=== PATIENT | female | born 1935 | race Caucasian/White ===

== ENCOUNTER 2020-07-25 17:43 | Inpatient (IN) | payer MEDICARE, BC ==
--- NOTE | ~2020-07-25 | EC ---
PATIENT:TOMASA WIGGINS DATE OF SERVICE: 07/25/20 SEX: F MEDICAL RECORD: [id number] DATE OF : 39 LOCATION:[facility] AGE OF PATIENT: 85 ADMISSION DATE: 07/25/20 REFERRING PHYSICIAN: INTERPRETING PHYSICIAN: ROXY NGO MD ECHOCARDIOGRAM REPORT ECHO CHARGES Date: CLINICAL DIAGNOSIS: ECHOCARDIOGRAPHIC MEASUREMENTS (adult normal given) AC root (d.<3.7cm) cm LV Septum d (<1.2 cm> cm Valve Excursion cm LV Septum (systole) cm Left Atria (s.<4.0cm> cm LVPW d(<1.2cm) cm RV (d.<2.3cm) cm LVPW (sytole) cm LV diastole(<5.6CM) cm MV E-F(>70mm/sec) cm LV systole cm LVOT Diameter cm MV exc.(>10mm) cm Est.ejection fraction (50-75%) % DOPPLER: LVIT cm/sec A cm/sec E cm/sec LA cm/sec RVSP mmHg LVOT cm/sec AOP1/2T m/s Asc. Ao cm/sec RVOT cm/sec RA cm/sec PA cm/sec AV Gradient Peak mmHg AV Mean mmHg AV Area cm MV Gradient Peak mmHg MV Mean mmHg MV Area cm COMMENTS: Electronic Tester: Structural Design Engineer: SONIA# Pericardial Effusion DATE OF SERVICE: PROCEDURE: Transthoracic echocardiogram. FINDINGS: Left ventricle shows mild left ventricular concentric hypertrophy with diastolic dysfunction. The patient has normal left ventricular systolic function with an ejection fraction of 55% and without any regional wall motion abnormalities. ECHOCARDIOGRAM REPORT [id number] TOMASA WIGGINS RIGHT VENTRICLE: Normal size, shape, structure, and function. LEFT ATRIUM: Mild to moderately dilated. RIGHT ATRIUM: Mildly dilated with normal structure and function. AORTIC VALVE: Normal structure and function. MITRAL VALVE: Normal structure and function with trace mitral regurgitation. TRICUSPID VALVE: Normal structure and function with mild tricuspid regurgitation. The right ventricular systolic pressures are upper limits of normal. PULMONIC VALVE: Normal. There is no pleural effusion. There is no pericardial effusion. There is no obvious ASD or VSD or vegetation or thrombus. IMPRESSION: This is a normal transthoracic echocardiogram with the slight exception of mild concentric left ventricular hypertrophy and diastolic dysfunction. TRANSINT:[id number] Voice Confirmation ID: [id number] DOCUMENT ID: [id number] ROXY NGO MD CC: [id number] DICTATION DATE: 07/26/20 1325 ACCOUNTS PAYABLE CLERK: 07/26/202222 ADM IN [place] [id number] [place] [address]
[2020-07-25] MEDS ORDERED: VITAMIN D-40010 MCG PO (19:31)
[2020-07-25] MEDS ORDERED: ZYRTEC10 MG PO (19:31)
[2020-07-25] MEDS ORDERED: CHRONULAC30 ML PO (19:32)
[2020-07-25] MEDS ORDERED: LEVOXYL100 MCG PO (19:33)
[2020-07-25] MEDS ORDERED: MUCINEX600 MG PO (19:33)
[2020-07-25] MEDS ORDERED: LISINOPRIL40 MG PO (19:34)
[2020-07-25] MEDS ORDERED: IMODIUM2 MG PO (19:35)
[2020-07-25] MEDS ORDERED: MOBIC7.5 MG PO (19:35)
[2020-07-25] MEDS ORDERED: MILK OF MAGNESI30 ML PO (19:35)
[2020-07-25] MEDS ORDERED: MULTI-DAY VITAM1 TAB PO (19:36)
[2020-07-25] MEDS ORDERED: MIRALAX17 GM PO (19:36)
[2020-07-25] MEDS ORDERED: REMERON15 MG PO (19:36)
[2020-07-25] MEDS ORDERED: SENNA LAXATIVE8.6 MG PO ×2 (19:37→19:38)
[2020-07-25] MEDS ORDERED: ZOLOFT100 MG PO (19:37)
[2020-07-25 20:00] VITALS: BP 145/77
--- NOTE | 2020-07-25 20:47 | NUR ---
PT ADMIT TO THE UNIT FROM [facility] FOR SI. PT RELATED TO A NURSE AT MD THAT SHE PLANNED ON SUFFOCATING HERSELF WITH A PLASTIC BAG. PT ARRIVED WITH MD STAFF. AMBULATORY WITH A ROLLER WALKER FOR ASSIST. ITEMS WITH PT INVENTORIED AND PLACED IN CHART. CONSENT OBTAINED FROM DAUGHTER MERLE MONSON AND CONFIRMED PT CODE STATUS DNR. BOTH DNR AND POA PAPERWORK LOCATED AND PLACED IN CHART. PASSCODE GIVEN. PT IS CALM AND COOPERATIVE. VERY CONFUSED TO WHY SHE IS HERE. DENIES THOUGHTS OF SELF HARM TO THIS NURSE. COVID SWAB OBTAINED AND SENT TO LAB PER PROTOCOL. PT PLACED IN DROPLET ISOLATION PENDING RESULTS. EDUCATED PT ON ISOLATION PROTOCOL AND SHE VERBALIZED UNDERSTANDING. MONITOR FOR SAFETY.
[2020-07-25 21:56] VITALS: BP 145/77; BMI 26.5
[2020-07-26 01:17] LABS: BILIRUBIN NEGATIVE (NEGATIVE); KETONE NEGATIVE (NEGATIVE); NITRITE NEGATIVE (NEGATIVE); UROBILINOGEN NORMAL mg/dL (< 2)
[2020-07-26 05:59] LABS: BASOPHILS 0.2 % (0-2); EOSINOPHILS 5.2 % (0-7); HEMATOCRIT 35.9 % (36.0-48.0); HEMOGLOBIN 11.5 g/dL (12-16); IMMATURE GRANULOCYTES 0.3 % (0-5); LYMPHOCYTE ABS# 2.17 10x3/uL (1.18-3.74); LYMPHOCYTES 36.2 % (15-50); MCH 30.7 pg (26.0-34.0); MEAN PLATELET VOLUME 8.3 fL (7.4-10.4); MONOCYTES 9.3 % (2-11); NEUTROPHIL ABS# 2.93 10x3/uL (1.56-6.13); NEUTROPHILS 48.8 % (40-80); PLATELET COUNT 167 10x3/uL (130-400); RBC 3.74 10x6/uL (4.00-5.40)
[2020-07-26 06:44] LABS: ANION GAP 7.9 mmol/L (8-16); BILIRUBIN - TOTAL 0.34 mg/dL (0.2-1.3); CALCIUM 8.4 mg/dL (8.5-10.1); CARBON DIOXIDE 29.8 mmol/L (21.0-32.0); CHOL - HDL RATIO 3.9 ratio (2.3-4.1); LDL-HDL RATIO 2.5 ratio (1.5-3.5); POTASSIUM - SERUM 3.7 mmol/L (3.5-5.1); PROTEIN - SERUM 6.1 g/dL (6.4-8.2); THYROID STIMULATING HORMONE 8.75 uIU/mL (0.36-3.74)
[2020-07-26 21:44] VITALS: BP 177/80
--- NOTE | 2020-07-26 23:00 | NUR ---
PT IS ALERT AND ORIENTED TO SELF,PLACE AND SITUATION. SHE DENIES ANY SI. VERY CONFUSED AND RESTLESS AT TIMES. COMPLIANT WITH ALL MEDICATIONS. EASY TO REDIRECT BUT REQUIRES CONSTANT REDIRECTION THIS EVENING. UNSTEADY GAIT. MONITOR FOR SAFETY.
[2020-07-27 08:00] VITALS: BP 154/75
[2020-07-27 10:58] VITALS: Wt 66.1 kg
--- NOTE | 2020-07-27 13:58 | PSY ---
PATIENT NAME:TOMASA WIGGINS MEDICAL RECORD: [id number] : 39 LOCATION:[facility] ADMISSION DATE: 07/25/20 ACCOUNT: [id number] PSYCHIATRIC EVALUATION DATE OF EVALUATION: 07/26/20 IDENTIFYING DATA: The patient is an 85-year-old female who appears her stated age and she is admitted to the hospital on a voluntary basis. CHIEF COMPLAINT: Suicidal ideation. HISTORY OF PRESENT ILLNESS: The patient reports that for the last 3 months, she has become more and more depressed. The patient reports that she had thought of her first plan was to be able to jump out the window, but then realized that the window was too hard to break. The patient reports that then she decided that if her daughter would not take her out that then she would move and she would use a plastic bag. The patient reports that she lives at the long-term care facility with her son who is handicapped. 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 She states that her depression has worsened since she has not been able to move back home with her son and that she has to live at the half-way. She also states that it has been hard because her daughter is only be able to visit her from the window. PAST MEDICAL HISTORY: Hypothyroidism. She has a history of hypertension, syncope, bradycardia, orthostatic hypotension, chronic diastolic heart failure, constipation, arthritis, osteoporosis, kyphosis, menopause. PAST PSYCHIATRIC HISTORY: She has an established diagnosis of dementia, depression, and sundowns. FAMILY HISTORY: Unknown. ALLERGIES: INCLUDES BISPHOSPHONATES, LIDOCAINE, ALTERNATE SODIUM, AND IBANDRONATE SODIUM. CURRENT MEDICATIONS: Zyrtec, lisinopril, Mobic, milk of mag, MiraLax, Remeron, Theragran, senna laxative, Zoloft. 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 She was . They had 3 children, 1 child is handicapped includes physical and she has been a care provider for him. They reside in an apartment. She states her daughter then made her move into a half-way because she needed help caring for herself and her son. The patient reports she does not agree with that. She would rather move into her daughter's house, she feels it is big enough. Her daughter is a speech pathologist and that she should be able to live on a floor and does not want to be in the half-way. MENTAL STATUS EXAM: The patient is awake and alert and oriented to person and place. Disoriented to time, somewhat oriented to situation. Her speech is soft, low tone, low volume. Her eye contact is good. Her posture is within normal limits. Her appearance is that she has her shirt wrong side out and on backwards. Her mood is depressed and anxious. Her affect is flat, narrow in range. The patient does have suicidal ideation. She denies any plan today. The patient does not have intent to harm others. She does not appear to be attending to auditory or visual hallucinations nor delusional. Her thought processes are circumstantial. Her memory, concentration, and abstraction abilities are impaired. Her judgment is poor. Her insight is poor. Her impulsivity is high. Her memory is fair for recent, poor for remote events. Her strengths are her ability to communicate her needs. The patient states that she has endured emotional trauma because of the half-way, but denies physical or sexual trauma. DIAGNOSTIC IMPRESSION: AXIS I: Includes dementia, depression, generalized anxiety. AXIS II: Deferred. AXIS III: Chronic diastolic heart failure, hypertension, osteoarthritis, osteoporosis, degeneration of cervical intervertebral disc, kyphosis, hypothyroidism, constipation, over reactive bladder, hyperlipidemia, vitamin D deficiency, and allergic rhinitis. AXIS IV: Moderate. AXIS V: Global assessment of functioning is 25. PLAN: At this time, the patient is admitted to the hospital for comprehensive medical, psychological, and social evaluation. She will be treated with both mood stabilizing and memory enhancing medications. Her long-term prognosis is guarded. Dictated By: Sydnie Romo APN I have interviewed/examined the above patient and agree with these documented findings. TRANSINT:[id number] Voice Confirmation ID: [id number] DOCUMENT ID: [id number] Dictated By: SYDNIE ROMO I have interviewed/examined the above patient and agree with these documented findings. JOS ALRKIN MD at 1358 at 1456 CC: [id number] DICTATION DATE: 07/26/20 1150 THREADER OPERATOR: 07/26/20 1313 [facility] IN [facility] [address] [place] [address]
--- NOTE | 2020-07-27 17:15 | NUR ---
RECEIVED IN PATIENT ROOM. SITTING ON SIDE OF BED. CONFUSED. DELUSIONAL. THINKS SHE IS ON A BUS. PACES UNIT WITH WALKER. DENIES SUICIDAL IDEATION. REDIRECT AND REORIENT NEEDED. EATING DINNER AT THIS TIME. CONTINUE PLAN OF CARE.
[2020-07-27 22:16] VITALS: BP 152/79
--- NOTE | 2020-07-28 01:26 | NUR ---
B)RECEIVED PATIENT STANDING AT THE NURSE'S STATION. FACE MASK IS DOWN ON HER NECK. ORIENTED TO SELF, PLACE AND SITUATION. RELATED THE REASON SHE IS HERE IS "CAUSE I WAS TRYING TO KILL MYSELF.I FELT LIKE I WAS IN [facility]. THEY WERE SUPPOSE TO BE HELPING ME BUT I STILL FELT LIKE I WAS IN [place]. I JUST WANTED TO GET SOMEBODY'S ATTENTION." I)ADMINISTER MEDS AND MONITOR COMPLIANCE. OBTAIN VERBAL NO HARM CONTRACT. R)MED COMPLIANT. CONTRACTS VERBALLY FOR NO SELF HARM. DENIES SI CURENTLY. P)CONTINUE POC AND PROVIDE SAFE ENVIRONMENT.
[2020-07-28 07:16] LABS: RAPID PLASMA REAGIN Non Reactive (Non Reactive)
--- NOTE | 2020-07-28 13:42 | NUR ---
REC'D PT IN BED WITH EYES OPEN. AWAKE AND ALERT X 2. CALM AND COOPERATE WITH ASSESSMENT AT THIS TIME. PRESCRIBED MEDS PROVIDED ORDERED. MED COMPLIANT. DENIES SI. CONFUSION NOTED AT THIS TIME. LOOSE STOOLS NOTED. SPOKE WITH ATTENDING Anand BERNAL APRN WILL MAKE APPROPRIATE MED CHANGES AT THIS TIME. REDIRECT AND REORIENT NEEDED. FALL PRECAUTIONS IN PLACE. WILL CPOC.
--- NOTE | 2020-07-28 16:48 | PN ---
PATIENT:TOMASA WIGGINS MEDICAL RECORD: [id number] LOCATION:[facility] Aj ADMISSION DATE: 07/25/20 PROGRESS NOTE DATE OF SERVICE: 07/27/2020 SUBJECTIVE: The patient's case was discussed with staff. She has no new complaint. OBJECTIVE: The patient has no thoughts of harming herself or others. She is severely impaired cognitively and very limited in her insight. She particularly has trouble with sundowning behavior. ASSESSMENT: Dementia. PLAN: The patient has been talking to her in a way that is clearly not fully in touch with reality. I am going to treat her with a low dose of Trilafon for this psychotic symptom. TRANSINT:[id number] Voice Confirmation ID: [id number] DOCUMENT ID: [id number] JOS LARKIN MD at 1648 CC: [id number] DICTATION DATE: 07/27/201742 WALL MAN: 07/28/20 0053 ADM IN [id number] [place] [address]
[2020-07-28 20:00] VITALS: BP 146/79
--- NOTE | 2020-07-28 20:12 | NUR ---
RECEIVED IN BEDROOM. RESTING QUIELT IN BED WITH EYES OPEN. CALM AND COOPERATIVE WITH CARE AND ASSESSMENT. NO STATEMENTS OF SELF HARM VOICED. ENCOURAGE TO EXPRESS NEEDS. CONTINUES TO REST QUIETLY IN BED. CONTINUE PLAN OF CARE.
--- NOTE | 2020-07-28 21:57 | NUR ---
THREW WATER AT [facility]. CONFUSED TO SITUATION, REDIRECT AND REORIENT NEEDED. CALMED.
[2020-07-29 08:16] VITALS: BP 137/74
--- NOTE | 2020-07-29 10:30 | NUR ---
Received patient in bed with eyes open. Awake and alert to person. Calm and cooperative with assessment at this time. Prescribed medications provided as ordered. Med compliant at this time. Redirect and reorient as needed. No aggression noted at this time. Patient denies suicidal ideation. Fall precautions in place for safety. Will continue plan of care.
--- NOTE | 2020-07-29 10:54 | NUR ---
Nutrition Re-Assessment Diet: Cardiac PO intake: ~89% average x last 9 meals Last BM: 07/27/20 Wt: 154# (07/27/20); Admit Wt: 154.2# (07/25/20) Meds noted: MVI Labs reviewed Estimated nutrition needs and nutrition diagnosis remain unchanged from initial nutrition assessment at this time. Patient is progressing towards meeting nutrition goals at this times. Recommendations/Inteventions: -Continue current diet. Will continue to honor food preferences within diet restrictions. -RD will continue to monitor PO intake and wt trend. -RD will follow-up within 7 days.
--- NOTE | 2020-07-29 16:20 | PN ---
PATIENT:TOMASA WIGGINS MEDICAL RECORD: [id number] LOCATION:[facility] ADMISSION DATE: 07/25/20 PROGRESS NOTE DATE OF SERVICE: 07/28/2020 SUBJECTIVE: The patient's case was discussed with staff. She has no new complaint. OBJECTIVE: The patient is in good behavioral control with limited insight about her situation. ASSESSMENT: 1. Dementia. 2. Major depression. PLAN: The patient has been confused, but has no suicidal thoughts. She will be maintained current medicines and therapies. TRANSINT:[id number] Voice Confirmation ID: [id number] DOCUMENT ID: [id number] JOS LARKIN MD at 1620 CC: [id number] DICTATION DATE: 07/28/20 170 OPTICAL INSTRUMENT INSPECTOR: 07/29/20 0018 ADM IN [facility] [address] [place] [address]
[2020-07-29 20:00] VITALS: BP 130/76
--- NOTE | 2020-07-29 21:17 | NUR ---
PT IS ALERT AND ORIENTED TO SELF ONLY. POOR INSIGHT INTO HER SITUATION. OBSERVED ATTEMPTING TO WANDER INTO ANOTHER PT ROOMS. COMPLIANT WITH ALL MEDICATIONS. EASY TO REDIRECT. DENIES SI. MONITOR FOR SAFETY.
[2020-07-30 08:51] VITALS: BP 120/70
--- NOTE | 2020-07-30 14:24 | NUR ---
Rec'd patient this am lying in bed. She is A/O times one to person. She is very confused. She is med compliant and takes meds whole. She is very confused. At butte she was attempting to use a straw as a fork and was using a spoon as a straw. She is quiet and cooperative and is redirectable. She denies any suicidal ideation or self harm. She attented group therapy/activities today and particiapated well.
--- NOTE | 2020-07-30 15:40 | NUR ---
MISS KENNEDY CALLED TO LET STAFF KNOW SHE COULD NOT BE ABLE TO MAKE VISITATION THIS SHIFT. SHE STATED SHE WOULD ATTEMPT TO MAKE IT ON THE MONDAY AND MONDAY VISITATION. SHE DID NOT WANT TO UPSET AT THIS TIME. STAFF DID NOT ALERT STAFF OF VISITATION THIS SHIFT.
--- NOTE | 2020-07-30 16:13 | PN ---
PATIENT:TOMASA WIGGINS MEDICAL RECORD: [id number] LOCATION:[facility] ADMISSION DATE: 07/25/20 PROGRESS NOTE DATE OF SERVICE: 07/29/2020 SUBJECTIVE: The patient's case was discussed with staff. She has no new complaint. OBJECTIVE: The patient has been restless and disruptive. She became angry and threw water on one of the nurse's aides today. ASSESSMENT: Dementia. PLAN: The patient will be maintained on current medicines. I am going to reduce the dose of the Seroquel slightly. Her long-term prognosis is guarded. TRANSINT:[id number] Voice Confirmation ID: [id number] DOCUMENT ID: [id number] JOS LARKIN MD at 1613 CC: [id number] DICTATION DATE: 07/29/20 1638 VENTILATING EXPERT: 07/29/20 2342 ADM IN [facility] [address] [place] [address]
[2020-07-30 20:00] VITALS: BP 126/47
--- NOTE | 2020-07-31 01:46 | NUR ---
B) Patient is alert and oriented to self, confused and wanders at times, follows intructions, I) Administered scheduled medications as ordered, redirected as needed, monitored for safety, R) Mediation compliant, no S.I. this shift P) Continue plan of care.
--- NOTE | 2020-07-31 11:57 | PN ---
PATIENT:TOMASA WIGGINS MEDICAL RECORD: [id number] LOCATION:[facility] ADMISSION DATE: 07/25/20 PROGRESS NOTE DATE OF SERVICE: 07/30/2020 SUBJECTIVE: The patient's case was discussed with staff. She has no new complaint. OBJECTIVE: The patient is disorganized with poor insight about her situation. ASSESSMENT: 1. Dementia. 2. Major depression. PLAN: Current medicines have been reviewed and will be maintained. Long-term prognosis is guarded. TRANSINT:[id number] Voice Confirmation ID: [id number] DOCUMENT ID: [id number] JOS LARKIN MD at 1157 CC: [id number] DICTATION DATE: 07/30/20 1710 INSPECTOR BICYCLE: 07/30/20 1842 ADM IN [place] [id number] [place] [address]
[2020-07-31 15:05] VITALS: BP 117/65
--- NOTE | 2020-07-31 15:53 | NUR ---
Rec'd patient this am sitting in her room. She is A/O times 1 to person. She is and can be at times very confused. She was attempting to use her spoon as a straw and her straw for a fork. She requires a lot of supervision with most task. She is med compliant and takes meds whole. She denies any suicidal ideation or self harm. She sat in group activit and napped. She is difficult to direct and redirect.
--- NOTE | 2020-07-31 16:01 | NUR ---
Patients daughter call a few minutes ago and ask about being here for a visit. This nurse informed her what specific days and times that this unit has visitors and she stated "oh, I thought it was every day"
[2020-07-31 20:00] VITALS: BP 107/56
--- NOTE | 2020-07-31 20:23 | NUR ---
RECEIVED PATIENT IN HER ROOM, LYING IN BED SMILING, PLEASANT BUT VERY CONFUSED, SHE THINKS SHE IS HERE TO HAVE ALL OF HER BLOOD TAKEN, COMPLIANT WITH MEDS. WILL FOLLOW POC
[2020-08-01 09:00] VITALS: BP 150/83
--- NOTE | 2020-08-01 13:45 | NUR ---
PT SITTING AND SPEAKING WITH A PEER AT THIS TIME. PT IS CONFUSED AND ALERT TO SELF ONLY. REDIRECT AND REORIENT NEEDED. PT IS COMPLIANT WITH MEDS, VITALS AND ASSESSMENTS. PT AMBULATES WITH A WALKER. PT WAS SLEEPY AT BREAKFAST. AWAKE AND ALERT AT THIS TIME. PT IS STATING SHE HAS TO GO HOME AND SHE IS GOING TO THROW HER WALKER OUT OF THE WINDOW OR THROUGH THE DOOR. UNABLE TO REDIRECT PT AT THIS TIME. PT LACKS INSIGHT TO SITUATION. CONTS TO EXIT-SEEK. STATING SHE IS GOING HOME. CONT TO MONITOR. WILL CONT PLAN OF CARE.
--- NOTE | 2020-08-01 15:38 | NUR ---
pt daughter called stating she was visiting today.
--- NOTE | 2020-08-01 15:38 | NUR ---
pt has had several behaviors I.E throwing her walker toward the nurse, slamming the phone reciever, throwing the mouse on the computer, wanting to call the ceo and founder so she can leave, took papers from staff and refused to give them to staff. refused to give back mouse from computer and then threw it.
--- NOTE | 2020-08-01 17:24 | NUR ---
pt daughter came to visit nurse gave an update on behaviors. she was upset with staff cause she wanted to leave. her daughter came and pt apologized about her behavior. she had a very good visit. she allowed her to assist with combing her hair and brushing her teeth. pt was smiling and very happy at this time.
--- NOTE | 2020-08-01 17:50 | NUR ---
pt was confused, anxious and exit-seeking stating her was waiting on her somewhere and she needed to leave now. pt became combative with staff. Ativan 0.5 mg PO per prn order. will cont to monitor.
--- NOTE | 2020-08-01 18:50 | NUR ---
prn effective at this time. pt is smiling at staff.
--- NOTE | 2020-08-01 21:57 | NUR ---
B)RECEIVED PATIENT WALKING IN THE UNIT AND STANDING AT THE [employer]'S STATION. CONFUSED. ORIENTED TO SELF ONLY. SOCIALIZING AND LAUGHING HOWEVER DOES NOT FOLLOW TOPIC OF CONVERSATION. DELUSIONAL AND THINKS MIL IS HER . RELATED SHE IS WAITING FOR HER (POINTING AT ONE OF THE NURSES) TO TAKE HER HOME. WHEN ASKED WHERE SHE LIVES PATIENT LAUGHED AND RELATED ON A ROAD HOWEVER COULD NOT RECALL THE NAME OF THE ROAD. COOPERATIVE AND APPROPRIATE WITH STAFF. I)ADMINISTER MEDS AND MONITOR COMPLIANCE. INVOLVE IN REALITY BASED CONVERSATION. R)MED COMPLIANT. PATIENT UNABLE TO SEPARATE REALITY FROM FANTASY. P)CONTINUE POC AND PROVIDE SAFE ENVIRONMENT.
--- NOTE | 2020-08-02 10:39 | NUR ---
REC'D PT IN BED WITH EYES OPEN. AWAKE AND ALERT TO PERSON ONLY. PRESCRIBED MEDS PROVIDED ORDERED. MED COMPLIANT. OT DNIES SI AT THIS TIME. NO BEHAVIORS NOTED. LOOSE STOOLS NOTED. Richi PADILLA APRN PRESENT AND AWARE AT THIS TIME. FALL PRECAUTIONS IN PLACE. WILL CPOC.
[2020-08-02 12:10] VITALS: BP 117/65
--- NOTE | 2020-08-02 19:55 | NUR ---
RECEIVED IN BEDROOM. RESTING IN BED WITH EYES CLOSED. RESPONSD TO VOICE. NO STATEMENTS OF SELF HARM VOICED. ENCOURAGE TO EXPRESS NEEDS. CONTINUES TO REST QUIETLY IN BED. CONTINUE PLAN OF CARE.
[2020-08-02 21:11] VITALS: BP 138/68
[2020-08-03 10:34] VITALS: BP 118/78
--- NOTE | 2020-08-03 16:33 | NUR ---
ALERT, CALM, QUIET, OCCASIONALLY AMBULATES WITH WALKER. OCCASIONALLY FORGETS TO USE WALKER AND MUST BE REMINDED TO USE WALKER WITH AMBULATION. MEDS ADMIN WHOLE WITH COMPLETE MED COMPLIANCE NOTED. CONT POC OUTLINED.
--- NOTE | 2020-08-03 18:40 | NUR ---
PATIENT RESTLESS, ANXIOUS, AND AGITATED. YELLING AT STAFF. ATTEMPTING TO ARGUE. CURSING AND CALLING NAMES. THINKS ANOTHER PATIENT IS HER AND WE ARE TRYING TO KEEP HER AWAY FROM HIM. RAMMED WALKER INTO TABLE STAFF WAS SITTING AT. ATTEMPTED TO HIT STAFF. THREW WALKER ACCROSS DAYROOM. WANDERING INTO OTHER PATIENTS ROOMS. UNABLE TO BE REDIRECTED. PRN ATIVAN 0.5 MG IM AND PRN HALDOL 2 MG IM GIVEN.
--- NOTE | 2020-08-03 20:28 | NUR ---
RECEIVED IN HALLWAY. VERY CONFUSED. ANXIETY. AGITATION. COOPERATIVE WITH VITALS AND MED PASS. REDIRECT AND REORIENT NEEDED. IN BED AT THIS TIME. NURSE AT BEDSIDE. CONTINUE PLAN OF CARE.
[2020-08-03 20:49] VITALS: BP 89/45
--- NOTE | 2020-08-04 07:28 | NUR ---
REC'D PT IN BED WITH EYES CLOSED. RESPONDS TO VERBAL STIMULI. CALM AND COOPERATIVE WITH ASSESSMENT AT THIS TIME. NO BEHAVIORS NOTED AT THIS TIME. PRESCRIBED MEDS PROVIDED ORDERED. REDIRECT AND REORIENT NEEDED. FALL PRECAUTIONS IN PLACE FOR SAFETY. WILL CPOC.
[2020-08-04 08:00] VITALS: BP 115/53
--- NOTE | 2020-08-04 14:39 | NUR ---
Nutrition Re-Assessment Diet: Cardiac PO intake: ~77% average x last 6 meals Last BM: last recorded 07/27/20, last BM per MD notes 08/02/20 Wt: 146.8# (08/02/20); Admit wt: 154.2# (07/25/20)- question accuracy of recorded weights vs. fluid status as patient has mostly had adequate PO intake DHS. Meds noted: miralax, MVI No new chem labs Estimated nutrition needs and nutrition diagnosis remain unchanged from initial nutrition assessment at this time. Patient is progressing towards meeting nutrition goals at this time. Recommendations/Interventions: -Recommend continue current diet. Will continue to honor food preferences within diet restrictions. -Will continue to monitor PO intake and wt trend. -RD will follow-up within 7 days.
--- NOTE | 2020-08-04 15:41 | PN ---
PATIENT:TOMASA WIGGINS MEDICAL RECORD: [id number] LOCATION:[facility] ADMISSION DATE: 07/25/20 PROGRESS NOTE DATE OF SERVICE: 08/03/2020 SUBJECTIVE: The patient's case was discussed with staff. She has no new complaint. OBJECTIVE: The patient is somewhat sedated. She has poor insight about her situation. She has, however, also received p.r.n. medications for some agitation. ASSESSMENT: Dementia. PLAN: The patient's Trilafon is going to be held. She will be monitored for clinical changes associated with its discontinuation. TRANSINT:[id number] Voice Confirmation ID: [id number] DOCUMENT ID: [id number] JOS LARKIN MD at 1541 CC: [id number] DICTATION DATE: 08/03/20 1635 POLICY ADVISER: 08/04/20 0021 ADM IN [place] [id number] [place] [id number]
--- NOTE | 2020-08-04 20:15 | NUR ---
RECEIVED IN DAYROOM. SITTING IN A CHAIR WITH PEERS AT HER SIDE. CALM AND COOPERATIVE WITH CARE AND ASSESSMENT. NO STATEMENTS OF SELF HARM VOICED. ENCOURAGE TO EXPRESS NEEDS. CONTINUES TO SIT QUIETLY IN DAYROOM. CONTINUE PLAN OF CARE.
[2020-08-04 20:29] VITALS: BP 115/62
[2020-08-05 10:34] VITALS: BP 134/65
--- NOTE | 2020-08-05 13:55 | NUR ---
Patient rec'd this am sitting up in a chair in the hallway. She appears drowsy so staff assisted her to a wheelchair. She is A/O times 1 to person. She can be very confused at times and will laugh out laugh inappropriately. She is med complianta and takes her meds whole. She is having difficulty following verbal instructions and directions. Plan for discharge soon for hospice eval. She denies suicidal ideations or self harm with no observations to hurt herself. She has participated in group activities/therapy today.
--- NOTE | 2020-08-05 14:53 | PN ---
PATIENT:TOMASA WIGGINS MEDICAL RECORD: [id number] LOCATION:[facility] [address] ADMISSION DATE: 07/25/20 PROGRESS NOTE DATE OF SERVICE: 08/04/2020 SUBJECTIVE: The patient's case was discussed with staff. She has no new complaint. OBJECTIVE: The patient was agitated and threw her walker at a nurse today. ASSESSMENT: Dementia. PLAN: The patient has no recollection of her behaviors, it was impulsive. At this point, I think it is going would be unrealistic to expect that she has no behavior outbursts and I am looking for the best balance between medication effectiveness and medication side effect. I have reviewed her medicines and I am not going to address today's behavior pharmacologically. TRANSINT:[id number] Voice Confirmation ID: [id number] DOCUMENT ID: [id number] JOS LARKIN MD at 1453 CC: [id number] DICTATION DATE: 08/04/20 1735 MARINE RAILWAY OPERATOR: 08/05/20 0212 ADM IN [place] [id number] [place] [address]
[2020-08-05 20:00] VITALS: BP 128/60
--- NOTE | 2020-08-05 22:20 | NUR ---
B)RECEIVED PATIENT LYING IN BED. ORIENTED TO SELF ONLY. SMILES WHEN APPROACHED. INTERACTS HOWEVER DOES NOT FOLLOW TOPIC OF CONVERSATION. DIFFICULTY FOLLOWING VERBAL INSTRUCTION RELATED TO IMPAIRED ABILITY TO COMPREHEND AND PROCESS INFORMAITON. I)ADMINISTER MEDS AND MONITOR COMPLIANCE. REORIENT NEEDED. INVOLVE IN REALITY BASED CONVERSATION. R)MED COMPLIANT, POOR REORIENTATION DUE TO IMPAIRED ABILITY TO COMPREHEND AND RETAIN INFORMATION. IMPAIRED ABILITY TO SEPARATE REALITY FROM FANTASY. P)CONTINUE POC AND PROVIDE SAFE ENVIRONMENT.
[2020-08-06 07:52] VITALS: BP 121/65
--- NOTE | 2020-08-06 11:42 | NUR ---
PT SITTING IN W/C AT THIS TIME. PT IS CALM AND COOPERATIVE WITH STAFF AND PEERS. CONFUSION NOTED. REDIRECT AND REORIENT NEEDED. PT IS ALERT TO PERSON ONLY. NO PACING NOTED. PT DID NOT RECIEVE P.M. MEDS DUE TO PT ODD BEHAVIORS. NURSE REPORTED TO Richi PADILLA APRN ABOUT BEHAVIORS. NEW ORDERS FOR LABS. PT IS COMPLIANT WITH MEDS, VITALS AND ASSESSMENTS. AMBULATES WITH WALKER PT WAS TO UNSTEADY THIS SHIFT FOR AMBULATION. PT IN W/C WITH CHAIR ALARM AT THIS TIME. WILL CONT PLAN OF CARE.
[2020-08-06 12:58] LABS: BASOPHILS 0.1 % (0-2); EOSINOPHILS 1.8 % (0-7); HEMATOCRIT 41.3 % (36.0-48.0); HEMOGLOBIN 13.1 g/dL (12-16); IMMATURE GRANULOCYTES 0.1 % (0-5); LYMPHOCYTE ABS# 1.87 10x3/uL (1.18-3.74); LYMPHOCYTES 27.4 % (15-50); MCH 31.1 pg (26.0-34.0); MCHC 31.7 g/dL (31.0-37.0); MCV 98.1 fL (80.0-100.0); MEAN PLATELET VOLUME 9.1 fL (7.4-10.4); MONOCYTES 8.2 % (2-11); NEUTROPHIL ABS# 4.25 10x3/uL (1.56-6.13); NEUTROPHILS 62.4 % (40-80); RBC 4.21 10x6/uL (4.00-5.40); RDW 13.9 % (11.5-14.5); WBC 6.8 10x3/uL (4.8-10.8)
[2020-08-06 13:15] LABS: ALBUMIN 3.8 g/dL (3.4-5.0); ANION GAP 9.6 mmol/L (8-16); BILIRUBIN - TOTAL 0.55 mg/dL (0.2-1.3); CALCIUM 9.4 mg/dL (8.5-10.1); CARBON DIOXIDE 29.6 mmol/L (21.0-32.0); CREATININE - SERUM 1.1 mg/dL (0.6-1.3); POTASSIUM - SERUM 4.2 mmol/L (3.5-5.1); PROTEIN - SERUM 7.3 g/dL (6.4-8.2)
[2020-08-06 13:22] LABS: PLATELET COUNT 252 10x3/uL (130-400)
--- NOTE | 2020-08-06 14:20 | NUR ---
nurse spoke with nurse at this time. nurse stated she did not get her PM meds due to being a bit drowsy and not her perky self. Tiburcio Hayes APRN notified and labs obtained to monitor pts levels at this time. she stated understandings stating she was acting a bit down on monday.
--- NOTE | 2020-08-06 16:11 | PN ---
PATIENT:TOMASA WIGGINS MEDICAL RECORD: [id number] LOCATION:[facility] ADMISSION DATE: 07/25/20 PROGRESS NOTE DATE OF SERVICE: 08/05/2020 SUBJECTIVE: The patient's case was discussed with staff. She has no new complaint. OBJECTIVE: The patient slept well last night. She is eating marginally well. She is only oriented to person and today she has not been aggressive. ASSESSMENT: 1. Dementia. 2. Major depression. PLAN: Current medicines have been reviewed and will be maintained. Long-term prognosis is guarded. TRANSINT:[id number] Voice Confirmation ID: [id number] DOCUMENT ID: [id number] JOS LARKIN MD at 1611 CC: [id number] DICTATION DATE: 08/05/20 1613 MAGNETIZER: 08/06/20 0000 ADM IN [facility] [address] [place] [address]
--- NOTE | 2020-08-06 18:16 | NUR ---
pt daughter did visit this shift. tolerated well.
--- NOTE | 2020-08-06 19:48 | NUR ---
B) Patient is alert and oriented to self, able to ambulate this shift, calm and cooperative, I) Administered scheduled medications as ordered, assisted with needs, monitored for safety R) Medication compliant, confused and wanders at times, P) Continue plan of care.
[2020-08-06 20:00] VITALS: BP 129/60
[2020-08-07 07:48] VITALS: BP 110/53
--- NOTE | 2020-08-07 11:41 | NUR ---
PT SITTING IN CHAIR SPEAKING WITH PEERS AT THIS TIME. PT IS CALM AND COOPERATIVE AT THIS TIME. CONFUSED AND ALERT TO SELF ONLY. COMPLAINT WITH MEDS, VITALS AND ASSESSMENTS. PT IS PLEASANT WITH STAFF AND PEERS. PT AMBULATES. CAN MAKE SOME NEEDS KNOWN. DENIES SI. CHAIR ALARM IN PLACE AND ACTIVE. WILL CONT PLAN OF CARE.
--- NOTE | 2020-08-07 13:08 | NUR ---
NUTRITION FOLLOW UP: COMMENTS: Patient present with decreasing PO intake, but eating well for snacks. DIET: AHA Cardiac Diet PO INTAKE: 33% avg for last 9 meals; 70% avg for last 6 snacks WEIGHT: 146.8 lbs on 08/02 BM: x 1 on 08/05 SIG MEDS: Miralax, Lipitor, Synthroid, MVI SIG LABS: On 08/06- BUN-30(H), AST-57(H) RECOMMENDATIONS: Continue AHA diet as tolerated Offer nutritional supplements if PO intake continues < 50% avg for meals Assistance with meals if needed RD to follow up within 7 days
--- NOTE | 2020-08-07 14:01 | PN ---
PATIENT:TOMASA WIGGINS MEDICAL RECORD: [id number] LOCATION:S[facility] Aj ADMISSION DATE: 07/25/20 PROGRESS NOTE DATE OF SERVICE: 08/06/2020 SUBJECTIVE: The patient's case was discussed with staff. She has no new complaint. OBJECTIVE: The patient is difficult to arouse or more accurately she has trouble staying awake after being aroused. The only sedating medication she is taking during the day is Xanax at a very low dose. Nevertheless, I think it is probably the reason for her sedation and I will discontinue it. TRANSINT:[id number] Voice Confirmation ID: [id number] DOCUMENT ID: [id number] JOS LARKIN MD at 1401 CC: [id number] DICTATION DATE: 08/06/20 1615 ANGLESMITH: 08/06/20 2327 ADM IN [place] [id number] [place] [address]
--- NOTE | 2020-08-07 15:26 | NUR ---
Patient has been sitting by the nurses station demonstrating signs of hallucinations, unable to follow any directions, be coming easily aggitated at staff, and laughing uncontrollably. Per order, Ativan IM given to lt. deltoid after explaining why to patient.
[2020-08-07 20:00] VITALS: BP 118/58
--- NOTE | 2020-08-07 20:50 | NUR ---
PT IS ALERT AND ORIENTED TO SELF ONLY. POOR INSIGHT INTO HER SITUATION. STATES "I WANT TO SEE WHAT IS GOING ON IN THE REST OF THIS PLACE." REQUIRES CONSTANT REDIRECTION. DENIES SI. COMPLIANT WITH ALL MEDICATIONS. RESTLESS OFTEN OBSERVED TRYING TO GET OUT OF BED WITHOUT ASSIST. MONITOR FOR SAFETY.
[2020-08-08 07:30] LABS: BILIRUBIN NEGATIVE (NEGATIVE); KETONE NEGATIVE (NEGATIVE); NITRITE NEGATIVE (NEGATIVE); UROBILINOGEN NORMAL mg/dL (< 2)
[2020-08-08 07:33] LABS: BACTERIA 1+ HPF (NONE SEEN); SQUAMOUS EPITHELIAL 0-5 HPF (0-4); WHITE CELLS - URINE 0-5 HPF (0-4)
[2020-08-08 09:42] VITALS: BP 137/83
--- NOTE | 2020-08-08 10:43 | PN ---
PATIENT:TOMASA WIGGINS MEDICAL RECORD: [id number] LOCATION:[facility] ADMISSION DATE: 07/25/20 PROGRESS NOTE DATE OF SERVICE: 08/07/2020 SUBJECTIVE: The patient's case was discussed with staff. She has no new complaint. OBJECTIVE: The patient is in good behavioral control. She has poor insight about her situation. She has been pleasant and cooperative. ASSESSMENT: Dementia. PLAN: Current medicines and therapies have been reviewed and will be maintained. Her long-term prognosis is guarded. TRANSINT:[id number] Voice Confirmation ID: [id number] DOCUMENT ID: [id number] JOS LARKIN MD at 1043 CC: [id number] DICTATION DATE: 08/07/20 1528 K 12 SCHOOL PROFESSIONAL: 08/07/20 2243 ADM IN [place] [address] [place] [address]
--- NOTE | 2020-08-08 14:04 | NUR ---
PATIENT WALKED 65 FEET WITH MIN ASST WITH WALKER.
--- NOTE | 2020-08-08 15:48 | NUR ---
PATIENT SPEAKING TO UNSEEN INDIVIDUALS.
--- NOTE | 2020-08-08 16:34 | NUR ---
ALERT, CALM, COOPERATIVE, QUITE CONFUSED, SPEAKING TO UNSEEN INDIVIDUALS. MEDS ADMIN PER ORDERS WITH COMPLETE MED COMPLIANCE NOTED. NO ADVERSE REACTION TO MEDS. CONT POC, MONITORING FOR AGGRESSION.
[2020-08-08 22:17] VITALS: BP 112/55
--- NOTE | 2020-08-08 22:51 | NUR ---
PT IS ALERT AND ORIENTED TO SELF ONLY. RECEIVED IN A GERICHAIR SITTING OUTSIDE NURSES STATION. OBSERVED REACHING FOR THINGS NOT VISABLE AND TALKING WITH UNSEEN OTHERS. COMPLIANT WITH ALL MEDICATIONS. DENIES SI. REQUIRES CONSTANT REDIRECTION. EASY TO REDIRECT. MONITOR FOR SAFETY.
[2020-08-09 08:00] VITALS: BP 115/72
--- NOTE | 2020-08-09 10:47 | PN ---
PATIENT:TOMASA WIGGINS MEDICAL RECORD: [id number] LOCATION:[facility] [address] ADMISSION DATE: 07/25/20 PROGRESS NOTE DATE OF SERVICE: 08/08/2020 SUBJECTIVE: The patient's case was discussed with staff. She has no new complaint. OBJECTIVE: The patient is oriented to person only. She has been resistant to care and restless, but not to a degree that has required p.r.n. medication. ASSESSMENT: 1. Dementia. 2. Major depression. PLAN: Brief supportive and educational interventions were made. Long-term prognosis is guarded. TRANSINT:[id number] Voice Confirmation ID: [id number] DOCUMENT ID: [id number] JOS LARKIN MD at 1047 CC: [id number] DICTATION DATE: 08/08/20 1107 OPERATIONS COORDINATOR: 08/08/20 1417 ADM IN [place] [id number] [place] [id number]
--- NOTE | 2020-08-09 17:03 | NUR ---
ALERT, RESTLESS, AMBULATED FREQUENTLY THIS SHIFT, QUITE CONFUSED AND DELUSIONAL. MEDS ADMIN PER ORDERS WITH COMPLETE MED COMPLIANCE NOTED. NO SUICIDAL IDEATIONS NOTED. CONT POC MONITORING FOR SUICIDAL IDEATIONS.
--- NOTE | 2020-08-09 19:56 | NUR ---
RECEIVED IN HALLWAY. STANDING OUTSIDE OF NURSES STATION. VERY CONFUSED. CALM AND COOPERATIVE WITH CARE AND ASSESSMENT. NO STATEMENTS OF SELF HARM VOICED. SITTING CALMLY IN A CHAIR IN HALLWAY AT THIS TIME. CONTINUE PLAN OF CARE.
[2020-08-09 21:15] VITALS: BP 109/58
[2020-08-10 08:27] VITALS: BP 120/75
--- NOTE | 2020-08-10 10:53 | NUR ---
PATIENT ALREADY UP WALKING AROUND WHEN PT CAME TO SEE HER. PATIENT WALKED 40 FEET WITH WALKER INDEPENDENTLY.
--- NOTE | 2020-08-10 13:29 | PN ---
PATIENT:TOMASA WIGGINS MEDICAL RECORD: [id number] LOCATION:[facility] [address] ADMISSION DATE: 07/25/20 PROGRESS NOTE DATE OF SERVICE: 08/09/2020 SUBJECTIVE: The patient's case was discussed with staff. She has no new complaint. OBJECTIVE: The patient was observed yesterday to be talking to someone not present. She was not distressed and obviously she has no recollection of this. ASSESSMENT: 1. Dementia. 2. Major depression. PLAN: Current medicines have been reviewed. Long-term prognosis is guarded. TRANSINT:[id number] Voice Confirmation ID: [id number] DOCUMENT ID: [id number] JOS LARKIN MD at 1329 CC: [id number] DICTATION DATE: 08/09/20 1107 DIRECTOR OF COMPENSATION: 08/09/20 1418 ADM IN [place] [id number] [place] [id number]
--- NOTE | 2020-08-10 17:30 | NUR ---
RECEIVED IN PATIENT ROOM. RESTING IN BED WITH EYES OPEN. CALM AND COOPERATIVE WITH CARE AND ASSESSMENT. DENIES SUICIDAL IDEATION. REDIRECT AND REORIENT NEEDED. EATING DINNER AT THIS TIME. CONTINUE PLAN OF CARE.
[2020-08-10 20:00] VITALS: BP 85/48
--- NOTE | 2020-08-11 01:11 | NUR ---
RECEIVED IN HALLWAY. SITTING IN A CHAIR OUTSIDE OF NURSES STATION. CALM AND COOPERATIVE WITH CARE AND ASSESSMENT. NO STATEMENTS OF SELF HARM VOICED THIS SHIFT. ENCOURAGE TO EXPRESS NEEDS. RESTING IN BED WITH EYES CLOSED AT THIS TIME. CONTINUE PLAN OF CARE.
--- NOTE | 2020-08-11 15:30 | PN ---
PATIENT:TOMASA WIGGINS MEDICAL RECORD: [id number] LOCATION:[facility] ADMISSION DATE: 07/25/20 PROGRESS NOTE DATE OF SERVICE: 08/10/2020 SUBJECTIVE: The patient's case was discussed with staff. She has no new complaint. OBJECTIVE: The patient is in good behavioral control with poor insight about her situation. ASSESSMENT: Dementia. PLAN: Current medicines have been reviewed. The patient is ready for discharge pending approval from the office of long-term care. TRANSINT:[id number] Voice Confirmation ID: [id number] DOCUMENT ID: [id number] JOS LARKIN MD at 1530 CC: [id number] DICTATION DATE: 08/10/20 1609 ACCOUNT ADJUSTER: 08/11/20 0019 ADM IN [place] [id number] [place] [address]
--- NOTE | 2020-08-11 17:25 | NUR ---
RECEIVED IN PATIENT ROOM. CALM AND COOPERATIVE WITH CARE AND ASSESSMENT. DENIES SUICIDAL IDEATION. REDIRECT AND REORIENT NEEDED. EATING DINNER AT THIS TIME. CONTINUE PLAN OF CARE.
[2020-08-11 20:00] VITALS: BP 113/63
--- NOTE | 2020-08-11 20:49 | NUR ---
RECEIVED IN BEDROOM. RESTING IN BED WITH EYES CLOSED. RESPONDS TO VOICE. CALM AND COOPERATIVE WITH CARE AND ASSESSMENT. NO STATEMENTS OF SELFHARM VOICED. ENCOURAGE TO EXPRESS NEEDS. RESTING IN BED WITH EYES CLOSED AT THIS TIME. CONTINUE PLAN OF CARE.
[2020-08-12 08:32] VITALS: BP 150/50
--- NOTE | 2020-08-12 14:36 | NUR ---
PATIENT WALKING OUT OF ROOM AND WALKED ALL THE WAY TO DAY ROOM USING WALKER. PATIENT NEEDED NO ASST FROM PT WHILE WALKING. PATIENT SAFE TO WALK WITH STAFF. PT WILL SIGN OFF.
--- NOTE | 2020-08-12 15:28 | NUR ---
Nutrition Re-Assessment Diet: Cardiac PO intake: ~83% average x last 9 meals Last BM: 08/12/20 Wt: 145# (08/09/20); Admit Wt: 154.2# (07/25/20)- question accuracy of admit wt as patient with mostly adequate PO intake DHS. Meds noted: miralax, MVI No new chem labs Estimated nutrition needs and nutrition diagnosis remain unchanged from initial nutrition assessment at this time. Patient is progressing towards meeting nutrition goals at this time. Recommendations/Interventions: -Recommend continue current diet. Will continue to honor food preferences within diet restrictions. -RD will follow-up within 7 days.
--- NOTE | 2020-08-12 16:06 | PN ---
PATIENT:TOMASA WIGGINS MEDICAL RECORD: [id number] LOCATION:[facility] [address] ADMISSION DATE: 07/25/20 PROGRESS NOTE DATE OF SERVICE: 08/11/2020 SUBJECTIVE: The patient's case was discussed with staff. She has no new complaint. OBJECTIVE: The patient denies intent to harm herself or others. She is tolerating her medicines well. ASSESSMENT: Dementia. PLAN: The patient will be maintained on current medicines. I anticipate she can be discharged as soon as the office of long-term care approves. TRANSINT:[id number] Voice Confirmation ID: [id number] DOCUMENT ID: [id number] JOS LARKIN MD at 1606 CC: [id number] DICTATION DATE: 08/11/20 170 SCREWHEAD POLISHER: 08/12/20 0025 ADM IN [facility] [address] [place] [address]
--- NOTE | 2020-08-12 16:36 | NUR ---
RECEIVED SITTING UP IN CHAIR IN HALLWAY THIS AM.IS ORIENTED TO SELF ONLY.VERY POOR SHORT TERM MEMORY.DIFFICULT TO REDIRECT,ARGUMENTIVE AT TIMES.DENIES THOUGHTS OF HURTING SELF.WILL CONTINUE WITH CURRENT PLAN OF CARE,MONITOR FOR CHANGES AND SAFETY.
--- NOTE | 2020-08-12 17:40 | NUR ---
RECEIVED IN PATIENT ROOM. SITTING ON SIDE OF BED. CALM AND COOPERATIVE WITH CARE AND ASSESSMENT. VERY CONFUSED. BECAME AGITATED AND AGGRESSIVE WITH STAFF WHEN STAFF WOULDNT ALLOW HER TO GO IN TO BATHROOM WITH ANOTHER PATIENT. REDIRECT AND REORIENT NEEDED. EATING DINNER AT THIS TIME. CONTINUE PLAN OF CARE.
[2020-08-12 20:00] VITALS: BP 106/55
--- NOTE | 2020-08-12 21:30 | NUR ---
PT IS ALERT AND ORIENTED TO SELF ONLY. SHE IS RECEIVED IN THE HALLWAY. AMBULATES ON OWN BUT IS UNSTEADY. DENIES SI. NO AGGRESSION NOTED. COMPLIANT WITH ALL MEDICATIONS. EASY TO REDIRECT.
[2020-08-13 09:42] VITALS: BP 159/66
--- NOTE | 2020-08-13 10:59 | NUR ---
RAGHU HERE TO EVAL PT AT THIS TIME. PAPERWORK GIVEN WELL.
--- NOTE | 2020-08-13 13:09 | PN ---
PATIENT:TOMASA WIGGINS MEDICAL RECORD: [id number] LOCATION:[facility] [address] ADMISSION DATE: 07/25/20 PROGRESS NOTE DATE OF SERVICE: 08/12/2020 SUBJECTIVE: The patient's case was discussed with staff. She has no new complaint. OBJECTIVE: The patient is in good behavioral control with poor insight about her situation. She has not been disruptive and hopefully can be transitioned back to the residential soon. TRANSINT:[id number] Voice Confirmation ID: [id number] DOCUMENT ID: [id number] JOS LARKIN MD at 1309 CC: [id number] DICTATION DATE: 08/12/20 1749 TREE FRUIT [employer]UT [employer]ARMING SUPERVISOR: 08/12/20 3724 ADM IN [place] [id number] [place] [address]
--- NOTE | 2020-08-13 16:34 | NUR ---
Patient rec'd this am up ambulatory in hallway.She is A/O times 1 to person. She is always smiling and laughing. She is med compliant and takes meds crushed and placed in food. She denies any suicidal ideations or self harm. She has a rolling walker and uses it when up out of her chair. She participated in group activities/therapy.
[2020-08-13 20:00] VITALS: BP 108/61
--- NOTE | 2020-08-13 21:03 | NUR ---
PT IS ALERT AND ORIENTED TO SELF ONLY. POOR INSIGHT INTO HER SITUATION. DENIES SI. CALM AND COOPERATIVE. RECEIVED IN DAYROOM SOCIALIZING WITH PEERS. COMPLIANT WITH ALL MEDICATIONS. EASY TO REDIRECT.
[2020-08-14 09:34] VITALS: BP 108/54
--- NOTE | 2020-08-14 14:26 | NUR ---
Patient has been ambulating about today in the dayroom and passed by this nurses and said "If you know where I could have find a bat...I'd hit someone'. this nurse ask her "what kind of bat"? and she replied "a baseball bat" and laughed out loud. This nurse ask her who she wanted hit and she stated "When I figure that out, I'll let you know' and she walked away. Positive feedback and redirection provided.
[2020-08-14 20:00] VITALS: BP 112/58
--- NOTE | 2020-08-14 23:11 | NUR ---
B)RECEIVED PATIENT SITTING IN THE DAYROOM AMONGST OTHER FEMALE PATIENTS. ORIENTED TO SELF ONLY. WHEN ASKED IF SHE COULD TELL NURSE WHERE SHE IS SHE RELATED "SITTING IN A RECLINER. MOVE INTO A DOCTOR'S THING." POOR INSIGHT INTO THE REASON FOR HOSPITALIZATION RELATING "MY DAUGHTER PUT ME HERE." PLEASANT. MOBILE ON UNIT WITH ASSIST OF WALKER. I)ADMINISTER MEDS AND MONITOR COMPLIANCE. REORIENT NEEDED. R)MED COMPLIANT. POOR REORIENTATION DUE TO IMPAIRED ABILITY TO RETAIN INFORMATION. DENIES SI. P)CONTINUE POC AND PROVIDE SAFE ENVIRONMENT.
[2020-08-15 08:00] VITALS: BP 122/75
--- NOTE | 2020-08-15 15:43 | NUR ---
PT SITTING AND TALKING WITH STAFF AT THIS TIME. PT IS CALM AND COOPERATIVE. CONFUSION NOTED. REDIRECT AND REORIENT NEEDED. PT DOES NOT REDIRECT DUE TO LOW COGNITIVE ABILITES. PT CAN MAKE SOME NEEDS KNOWN. PT WALKS WITH A WALKER. REQUIRES SOME ASSISTANCE WITH ADLS. COMPLIANT WITH MEDS, VITALS AND ASSESSMENTS. PT TO START ON A NEW MEDICATION FOR ANXIETY. BED AND CHAIR ALARM IN PLACE AMD ACTIVE. WILL CONT PLAN OF CARE.
--- NOTE | 2020-08-15 16:42 | NUR ---
ALERT, CALM, COOPERATIVE, QUITE CONFUSED, TALKATIVE WITH STAFF AND PEERS. DENIES SUICIDAL IDEATIONS. MEDS ADMIN PER ORDERS WITH COMPLETE MED COMPLIANCE NOTED. CONTINUE PLAN OF CARE, MONITORING FOR S.I.
[2020-08-15 20:00] VITALS: BP 109/67
[2020-08-15 22:28] LABS: BILIRUBIN NEGATIVE (NEGATIVE); KETONE NEGATIVE (NEGATIVE); NITRITE NEGATIVE (NEGATIVE); UROBILINOGEN NORMAL mg/dL (< 2)
--- NOTE | 2020-08-16 00:04 | NUR ---
B)RECEIVED PATIENT SITTING IN THE DAYROOM SOCIALIZING WITH ANOTHER FEMALE PEER. ORIENTED TO SELF ONLY. WHEN ASKED PATIENT TO TELL ME WHERE SHE IS PATIENT RELATES "RIGHT HERE GIVING HER MY PHONE NUMBER. WE ARE GOING TO BUY SOME THINGS TOGETHER. GET SOME SHOES." AMBULATORY WITH PERSONAL SEATED WALKER. I)ADMINISTER MEDS AND MONITOR COMPLIANCE. REORIENT NEEDED. R)MED COMPLIANT. POOR REORIENTATION DUE TO IMPAIRED ABILITY TO SEPARATE REALITY FROM FANTASY AND IMPAIRED ABILITY TO COMPREHEND INFORMATION. P)CONTINUE POC AND PROVIDE SAFE ENVIRONMENT.
[2020-08-16 06:24] LABS: BASOPHILS 0.1 % (0-2); EOSINOPHILS 3.6 % (0-7); HEMATOCRIT 34.9 % (36.0-48.0); HEMOGLOBIN 11.4 g/dL (12-16); IMMATURE GRANULOCYTES 0.1 % (0-5); LYMPHOCYTE ABS# 2.22 10x3/uL (1.18-3.74); LYMPHOCYTES 31.6 % (15-50); MCH 31.2 pg (26.0-34.0); MCHC 32.7 g/dL (31.0-37.0); MCV 95.6 fL (80.0-100.0); MEAN PLATELET VOLUME 9.1 fL (7.4-10.4); MONOCYTES 8.4 % (2-11); NEUTROPHIL ABS# 3.94 10x3/uL (1.56-6.13); NEUTROPHILS 56.2 % (40-80); PLATELET COUNT 209 10x3/uL (130-400); RBC 3.65 10x6/uL (4.00-5.40); RDW 12.9 % (11.5-14.5)
[2020-08-16 06:39] LABS: ALBUMIN 3.1 g/dL (3.4-5.0); ANION GAP 11.8 mmol/L (8-16); BILIRUBIN - TOTAL 0.24 mg/dL (0.2-1.3); CARBON DIOXIDE 26.3 mmol/L (21.0-32.0); POTASSIUM - SERUM 4.1 mmol/L (3.5-5.1); PROTEIN - SERUM 6.4 g/dL (6.4-8.2)
--- NOTE | 2020-08-16 08:00 | NUR ---
REC'D PT IN BED WITH EYES OPEN. AWAKE AND ALERT TO PERSON ONLY. CALM AND COOPERATIVE WITH ASSESSMENT. PT IS CONFUSED AT THIS TIME. PT HAS LITTLE OR NO INSIGHT INTO HER SITUATION. PRESCRIBED MEDICATIONS PROVIDED ORDERED. MED COMPLIANT AT THIS TIME. NO BEHAVIORS NOTED AT THIS TIME. REDIRECT AND REORIENT NEEDED. FALL PRECAUTIONS IN PLACE. WILL CPOC.
[2020-08-16 09:43] VITALS: BP 136/73
[2020-08-16 21:06] VITALS: BP 112/50
--- NOTE | 2020-08-16 21:11 | NUR ---
RECEIVED IN DAYROOM. SITTING IN A CHAIR WITH PEERS AT HER SIDE. CALM AND COOPERATIVE WITH CARE AND ASSESSMENT. NO STATEMENTS OF SELF HARM VOICED. ENCOURAGE TO EXPRESS NEEDS. CONTINUES TO SIT CALMLY IN DAYROOM. CONTINUE PLAN OF CARE.
[2020-08-17 08:00] VITALS: BP 103/55
--- NOTE | 2020-08-17 12:00 | NUR ---
Received patient in bed with eyes open. Awake and alert to person only. Calm and cooperative with assessment at this time. Prescribed medications provided as ordered. Med compliant at this time. No behaviors noted. Redirect and reorient as needed. Fall precautions in place for safety. Will cpoc.
--- NOTE | 2020-08-17 19:43 | NUR ---
RECEIVED IN HALLWAY. SITTING IN A CHAIR SOCIALIZING WITH PEERS. IN GOOD SPIRITS. CALM AND COOPERATIVE WITH CARE AND ASSESSMENT. NO STATEMENTS OF SELF HARM VOICED. ENCOURAGE TO EXPRESS NEEDS. SITTING IN WISE SOCIALIZING AT THIS TIME. CONTINUE PLAN OF CARE.
[2020-08-17 21:36] VITALS: BP 105/76
[2020-08-18 08:43] VITALS: BP 133/71
--- NOTE | 2020-08-18 16:04 | PN ---
PATIENT:TOMASA WIGGINS MEDICAL RECORD: [id number] LOCATION:[facility] ADMISSION DATE: 07/25/20 PROGRESS NOTE DATE OF SERVICE: 08/17/2020 SUBJECTIVE: The patient's case was discussed with staff. She has no new complaint. OBJECTIVE: The patient is tolerating her medications well. She has poor insight about her situation. ASSESSMENT: Dementia. PLAN: Current medicines have been reviewed and will be maintained. Long-term prognosis is guarded. TRANSINT:[id number] Voice Confirmation ID: [id number] DOCUMENT ID: [id number] JOS LARKIN MD at 1604 CC: [id number] DICTATION DATE: 08/17/20 1721 LANDSCAPE FOREMAN: 08/17/20 2234 ADM IN [address] [address]
--- NOTE | 2020-08-18 17:16 | NUR ---
CONFUSED AND DISORIENTED.VERY POOR SHORT TERM MEMORY.FORGETS WHERE THE BATHROOM IS AND WHERE THE DINNIING ROOM IS,ETC.IS COMPLIANT WITH MEDS BUT DIFFICULT TO REDIRECT AT TIMES.OFTEN HAS TO BE INSTRUCTED TO NOT PUSH A MALE PEER IN HIS WHEELCHAIR,WANTS TO TAKE HIM UP FRONT TO HIS ROOM.WILL CONTINUE WITH CURRENT PLAN OF CARE,MONITOR FOR CHANGES AND SAFETY.DENIES THOUGHTS OF SELF HARM.
--- NOTE | 2020-08-18 21:31 | NUR ---
RECEIVED IN BEDROOM. RESTING QUIETLY IN BED WITH EYES OPEN. IN GOOD SPIRITS. CALM AND COOPERATIVE WITH CARE AND ASSESSMENT. NO STATEMENTS OF SELF HARM VOICED. ENCOURAGE TO EXPRESS NEEDS. RESTING IN BED WITH EYES CLOSED AT THIS TIME. CONTINUE PLAN OF CARE.
[2020-08-18 22:26] VITALS: BP 111/52
[2020-08-19 08:00] VITALS: BP 124/50
--- NOTE | 2020-08-19 10:09 | NUR ---
NUTRITION REASSESSMENT: COMMENTS: Patient eating well and experiencing a good appetite. No recent significant weight changes. DIET: AHA Cardiac Diet PO INTAKE: 90% avg for last 9 meals; 100% for last 4 snacks WEIGHT: 08/09-145 lbs, 08/16-146.2 lbs BM: x 1 on 08/18 SIG MEDS: Miralax, Lipitor, Synthroid, Vit D, MVI SIG LABS: On 08/16- BUN-30(H), Albumin-3.1(L) RECOMMENDATIONS: Continue AHA Diet as tolerated RD to follow up within 7 days
--- NOTE | 2020-08-19 15:33 | PN ---
PATIENT:TOMASA WIGGINS MEDICAL RECORD: [id number] LOCATION:[facility] [address] ADMISSION DATE: 07/25/20 PROGRESS NOTE DATE OF SERVICE: 08/18/2020 SUBJECTIVE: The patient's case was discussed with staff. She has no new complaint. OBJECTIVE: The patient is impaired cognitively, but has not been disruptive and certainly has no suicidal thoughts and has not for a long time now. ASSESSMENT: 1. Dementia. 2. Depression. PLAN: Current medicines have been reviewed and will be maintained. The patient will be transitioned out of the hospital and back to the halfway as soon as the office of long-term care gives approval. TRANSINT:[id number] Voice Confirmation ID: [id number] DOCUMENT ID: [id number] JOS LARKIN MD at 1533 CC: [id number] DICTATION DATE: 08/18/20 160 DIVORCE ATTORNEY: 08/18/20 2317 ADM IN [facility] [address] [place] [address]
[2020-08-19] MEDS ORDERED: LIPITOR10 MG PO (16:17)
[2020-08-19] MEDS ORDERED: BUSPAR5 MG PO (16:17)
[2020-08-19] MEDS ORDERED: FEXOFENADINE HC60 MG PO (16:17)
[2020-08-19] MEDS ORDERED: TRAZODONE HCL100 MG PO (16:18)
[2020-08-19] MEDS ORDERED: MIRALAX17 GM PO (16:18)
[2020-08-19] MEDS ORDERED: LEVOTHYROXINE125 MCG PO (16:18)
[2020-08-19] MEDS ORDERED: ZOLOFT50 MG PO (16:18)
[2020-08-19] MEDS ORDERED: VITAMIN D325 MC1 PO (16:19)
--- NOTE | 2020-08-19 17:50 | NUR ---
PT PACING IN DINING ROOM AT THIS TIME. PT IS CONFUSED AND DISORIENTED. REDIRECT AND REORIENT NEEDED. PT DENIES SI. CALM AND COOPERATIVE WITH MEDS, VITALS AND ASSESSMENTS. NO BEHAVIORS NOTED. PT DOES PACE. REDIRECT AT THOSE TIMES. BED ALARM IN PLACE AND ACTIVE. WILL CONT PLAN OF CARE.
[2020-08-19 20:00] VITALS: BP 108/71
--- NOTE | 2020-08-19 20:17 | NUR ---
RECEIVED PATIENT IN [facility], SHE IS SMILING, HAS A GOOD AFFECT, VERY, VERY CONFUSED, SHE IS ORIENTED TO SELF ONLY, SHE IS COOPERATIVE, DENIES S/I. COMPLIANT WITH MEDS, WILL FOLLOW POC
[2020-08-20 08:55] VITALS: BP 139/63
--- NOTE | 2020-08-20 13:33 | NUR ---
SW CONTACTED PT'S DTR, MERLE, TO DISCUSS PT DISCHARGING TODAY. MARISOL GOT RAGHU BACK FROM [facility] AND FAXED FORM OVER TO [facility]. WAITING ON PUBLIC SAFETY TEACHER TIME. MARISOL HAD TO LEAVE VOICEMAIL.
--- NOTE | 2020-08-20 14:00 | NUR ---
MARISOL WAS CONTACTED BY [employer]. THEIR VAN IS TIED UP AND CANNOT VOLCANOLOGY PROFESSOR PT UNTIL 9AM IN THE MORNING. MARISOL ATTEMPTED TO CALL DTR, HAD TO LEAVE A VOICEMAIL WITH MERLE URBAN.
--- NOTE | 2020-08-20 16:09 | PN ---
PATIENT:TOMASA WIGGINS MEDICAL RECORD: [id number] LOCATION:[facility] [address] ADMISSION DATE: 07/25/20 PROGRESS NOTE DATE OF SERVICE: 08/19/2020 SUBJECTIVE: The patient's case was discussed with staff. OBJECTIVE: The patient denies that she would seek to harm herself or others. She is participating in treatment better, but still cognitively impaired. PLAN: Current medicines will be maintained and I anticipate that she can be transitioned out of the hospital and back to the assisted tomorrow. TRANSINT:[id number] Voice Confirmation ID: [id number] DOCUMENT ID: [id number] JOS LARKIN MD at 1609 CC: [id number] DICTATION DATE: 08/19/20 1616 LINK TRAINER: 08/19/20 2300 ADM IN [facility] [address] [place] [address]
[2020-08-20 20:00] VITALS: BP 120/56
--- NOTE | 2020-08-21 00:21 | NUR ---
B) Patient is alert and oriented to person, thinks she going to catch the shuttle bus for an outting, social with peers and staff, I) Administered scheduled medications as ordered, monitored for safety, assistyed with needs, R) Mediation compliant, resting quietly in bed now, P) Continue plan of care.
--- NOTE | 2020-08-21 07:39 | NUR ---
PT LAYING IN BED AT THIS TIME. PT IS CALM AND COOPERATIVE WITH STAFF AND CARE. CONFUSION NOTED. ALERT TO SELF ONLY. REDIRECT AND REORIENT NEEDED. PT IS PLESANT AND SOCIAL WITH STAFF AND PEERS. PT AMBULATES WITH WALKER. NO AGGRESSIVE BEHAVIORS NOTED. NO SI NOTED. BED ALARM IN PLACE AND ACTIVE. WILL CONT PLAN OF CARE.
[2020-08-21 09:30] VITALS: BP 126/63
--- NOTE | 2020-08-21 09:47 | NUR ---
THIS NURSE CALLED REPORT TO JR AT [employer] AT THIS TIME. NURSE GAVE A REPORT ON BEHAVIORS, BM, LAST SET OF VITALS, MOOD AND BELONGINGS. ALL PAPERWORK FAXED AND PAPER COPY SENT WITH PT AT THIS TIME. PT TOLERATED TRASFER TO [facility] AND WAS SMILING STATING SHE WOULD BE THINKING OF US. PT LEFT WITH [employer] AEROSPACE TECHNICIAN AT THIS TIME.
--- NOTE | 2020-08-21 09:55 | NUR ---
NURSE CALLED TO NOTIFY MERLE KENNEDY ON HER DEPARTURE. SHE WAS VERY EXCITED AND STATED SHE PUT [place] IN HER ROOM STATING WELCOME BACK. NURSE STATED SHE IS GOING TO LOVE THAT. SHE WAS IN A GOOD MOOD UPON LEAVING, SMILING AND STATING SHE WOULD BE THINKING OF US." SHE STATED WELL I HOPE SHE WILL GET THERE AND DO BETTER WITH HER ANXIETY. NURSE STATED SHE HAD BEEN DOING VERY WELL IN THE EVENING AND BEING TOLD SHE WAS GOING BACK TO [facility]. SHE THANKED US FOR ALL THAT WE DO AND SHE APPRECIATE US FOR EVERYTHING WE DO.
--- NOTE | 2020-08-24 08:54 | PN ---
PATIENT:TOMASA WIGGINS MEDICAL RECORD: [id number] LOCATION:[facility] ADMISSION DATE: 07/25/20 PROGRESS NOTE DATE OF SERVICE: 08/20/2020 SUBJECTIVE: The patient's case was discussed with staff. She has no new complaint. OBJECTIVE: The patient is partially oriented. She is eating and sleeping well. She is compliant with medications. ASSESSMENT: 1. Dementia. 2. Major depression. PLAN: The patient will be maintained on current medications. There were transportation issues with her discharge today and it is anticipated those will be resolved and she can be returned to the long-term in [place] tomorrow. TRANSINT:[id number] Voice Confirmation ID: [id number] DOCUMENT ID: [id number] JOS LARKIN MD at [id number] CC: [id number] DICTATION DATE: 08/20/20 165 DIGITAL BUSINESS ANALYST: 08/20/202051 DIS IN 08/21/20 [id number] [place] [address]
== END 2020-08-21 10:00 | DRG 885 ==
LOC: D.PSYCH 17:43
PROVIDERS: Psychiatry & Neurology Psychiatry; ADMIT Family Medicine; ATTEND Family Medicine
DX: F33.3 Major depressive disorder, recurrent, severe with psychotic symptoms (principal); F01.51 Vascular dementia, unspecified severity, with behavioral disturbance; I50.32 Chronic diastolic (congestive) heart failure; Z20.822 Contact with and (suspected) exposure to COVID-19; I11.0 Hypertensive heart disease with heart failure; M19.91 Primary osteoarthritis, unspecified site; M81.0 Age-related osteoporosis without current pathological fracture; M40.209 Unspecified kyphosis, site unspecified; E03.9 Hypothyroidism, unspecified; E03.8 Other specified hypothyroidism; E06.3 Autoimmune thyroiditis; K59.01 Slow transit constipation; N32.81 Overactive bladder; E78.5 Hyperlipidemia, unspecified; E55.9 Vitamin D deficiency, unspecified; J30.1 Allergic rhinitis due to pollen; R53.1 Weakness